=== PATIENT | female | born 1965 | race Caucasian/White ===

== ENCOUNTER 2017-11-25 08:29 | Emergency (ER) | payer OTHER ==
[2017-11-25] MEDS ORDERED: Ondansetron HCl/PF 4 MG/2 ML Vial ONE (09:23)
[2017-11-25] MEDS ORDERED: Meclizine HCl 25 MG TAB ONE (09:24)
[2017-11-25 09:49] LABS: ALT (SGPT) 100 U/L (8-55); AST (SGOT) 76 U/L (5-34); Albumin 4.1 g/dL (3.5-5.0); Alkaline Phosphatase 77 U/L (40-150); Anion Gap 13 mmol/L (10-20); BUN (Urea Nitrogen) 14 mg/dL (9.8-20.1); Bilirubin, Total 0.5 mg/dL (0.2-1.2); CK (CPK) 62 U/L (29-168); CKMB 1.5 ng/mL (0-6.6); Calc. Creatinine Clearance 0 mL/min (70-130); Calcium 9.6 mg/dL (7.8-10.44); Carbon Dioxide 28 mmol/L (22-29); Chloride 106 mmol/L (98-107); Estimated GFR-MDRD 89; Globulin 3.1 g/dL (2.4-3.5); Glucose 88 mg/dL (70-105); Lipase 9 U/L (8-78); Protein, Total 7.2 g/dL (6.0-8.3); Sodium 143 mmol/L (136-145); Troponin I Less than 0.010 ng/mL (< 0.028)
[2017-11-25 09:50] LABS: Bilirubin Negative (Negative); Blood, Urine Negative (Negative); Clarity Clear (Clear); Glucose, Urine (Dipstick) Negative (Negative); Leukocyte Negative (Negative); Nitrite Negative (Negative); Protein, Urine (Dipstick) Negative (Neg-Trace); Specific Gravity, Urine 1.015 (1.005-1.030); Urobilinogen 0.2 mg/dL (0.2-1.0); pH, Urine 5.5 (5.0-9.0)
[2017-11-25 10:02] LABS: #Eosinphils 0.1 thou/uL (0.0-0.7); #Lymphocytes 1.1 thou/uL (1.20-3.40); #Monocytes 0.2 thou/uL (0.11-0.59); #Neutrophils 3.8 thou/uL (1.40-6.50); %Basophils 0.8 % (0.0-1.0); %Eosinophils 2.7 % (0.0-10.0); %Lymphocytes 21.3 % (21.0-51.0); %Monocytes 3.8 % (0.0-10.0); %Neutrophils 71.4 % (42.0-75.0); Hemoglobin 13.7 g/dL (12.0-16.0); Mean Corpuscular HGB CONC 35.8 g/dL (32.0-36.0); Mean Corpuscular Hemoglobin 33.7 pg (27.0-31.0); Mean Corpuscular Volume 94.3 fl (81.0-99.0); Mean Platelet Volume 8.4 fL (7.4-10.4); Platelet Count 160 thou/uL (130-400); RBC Distribution Width 12.7 % (11.5-14.5); Red Blood Cell (RBC) Count 4.06 mill/uL (4.20-5.40); White Blood Cell (WBC) Count 5.3 thou/uL (4.8-10.8)
--- NOTE | 2017-11-25 10:13 | RAD ---
CHEST 1 VIEW: Date: 11/25/17 HISTORY: Nausea, vomiting, and chest pain. COMPARISON: Chest 1 view dated 05/24/10. FINDINGS: Marked increased mediastinal fat from the comparison examination. Possible air space consolidation ri ght lower lobe versus mediastinal fat. No pneumothorax. IMPRESSION: Likely just increased mediastinal fat from the comparison examination, less likely a right lower lobe air space opacity. POS: [facility]
--- NOTE | 2017-11-25 10:14 | CT ---
CT BRAIN: Date: 11/25/17 HISTORY: Pain in right ear for 2 days. FINDINGS: Noncontrast enhanced CT images of brain obtained. The brain is unremarkable. No evidence of intracran ial masses, hemorrhages, strokes, or contusions seen. Ventricles are of normal size. IMPRESSION: Normal CT brain. POS: [facility]
== END 2017-11-25 11:13 | disposition short-term general hospital (02) ==
LOC: NAV ERS 08:29
DX: R42 Dizziness and giddiness (principal); I25.10 Atherosclerotic heart disease of native coronary artery without angina pectoris; E11.9 Type 2 diabetes mellitus without complications; E03.9 Hypothyroidism, unspecified; Z87.891 Personal history of nicotine dependence; Z79.82 Long term (current) use of aspirin; Z79.899 Other long term (current) drug therapy
CPT/HCPCS: 36415; 70450; 71010; 80053; 81003; 82550; 82553; 83690; 84484; 85025; 93005; 96374; J2405

== ENCOUNTER 2023-09-03 16:10 | Outpatient (CLI) | payer OTHER | END 2023-09-03 16:11 | disposition home or self-care (01) | LOC: NAV RAD 16:10 | PROVIDERS: ATTEND Nurse Practitioner Family | DX: M79.602 Pain in left arm (principal) ==

== ENCOUNTER 2025-11-26 22:22 | Emergency (ER) | payer OTHER ==
[2025-11-26 22:32] LABS: Glucose, Urine (Dipstick) Negative (Negative); Leukocyte Large (Negative); Protein, Urine (Dipstick) > or equal to 300 mg/dL (Neg-Trace); Specific Gravity, Urine 1.020 (1.005-1.030)
[2025-11-26 22:36] LABS: Bacteria/HPF Rare-Few HPF (None Seen); CAUTI Indications for Culture Pelvic or flank pain; RBC/HPF 21-50 HPF (0-3); WBC/HPF 21-50 HPF (0-3)
[2025-11-26 22:37] LABS: Urine Culture Reflex Yes Yes
[2025-11-26] MEDS ORDERED: Cipro 250 MG TAB ONE (22:48)
== END 2025-11-26 22:54 | disposition home or self-care (01) ==
LOC: NAV ERS 22:22
DX: N39.0 Urinary tract infection, site not specified (principal); I25.2 Old myocardial infarction; I25.10 Atherosclerotic heart disease of native coronary artery without angina pectoris; E11.9 Type 2 diabetes mellitus without complications; E03.9 Hypothyroidism, unspecified; I50.9 Heart failure, unspecified; Z87.891 Personal history of nicotine dependence; Z79.84 Long term (current) use of oral hypoglycemic drugs; Z79.890 Hormone replacement therapy
CPT/HCPCS: 81001; 87077; 87086; 87186; 99283

== ENCOUNTER 2025-11-30 13:32 | Emergency (ER) | payer OTHER ==
[2025-11-30 14:31] LABS: Glucose, Urine (Dipstick) Negative (Negative); Leukocyte Small (Negative); Protein, Urine (Dipstick) 100 mg/dL (Neg-Trace); Specific Gravity, Urine Greater/Equal 1.030 (1.005-1.030)
[2025-11-30 14:42] LABS: Bacteria/HPF 2+ HPF (None Seen); CAUTI Indications for Culture Dysuria,urgency,freq; RBC/HPF 0-3 HPF (0-3); WBC/HPF 21-50 HPF (0-3)
[2025-11-30 14:43] LABS: Urine Culture Reflex Yes Yes
== END 2025-11-30 15:54 | disposition home or self-care (01) ==
LOC: NAV ERS 13:32
DX: N30.90 Cystitis, unspecified without hematuria (principal); E11.9 Type 2 diabetes mellitus without complications; I50.9 Heart failure, unspecified; Z87.891 Personal history of nicotine dependence
CPT/HCPCS: 81001; 87086; 99283